=== PATIENT | female | born 1980 | race Caucasian/White ===

== ENCOUNTER → 2018-06-17 | Outpatient (CLI) | END | disposition home or self-care (01) ==

== ENCOUNTER 2019-01-05 13:50 | Inpatient (IN) | payer MEDICAID ==
[~2019-01-05] VITALS: Ht 154.9 cm; Wt 69.3 kg
[~2019-01-05 13:50] MED LIST: EPHEDrine SULFATE 50 MG/5 ML SYG ONE; IBUP-1542 PO; OXYTOCIN 30 UNITS/LR 500 ML BAG IV ONE
[2019-01-05 14:12] VITALS: Ht 154.9 cm; Wt 69.3 kg
[2019-01-05] MEDS ORDERED: LIDOCAINE 1% (MPF) 30 ML INJ INJ PRN (14:30)
[2019-01-05] MEDS ORDERED: CARBOPROST 250 MCG INJ IM PRN ×2 (14:30→23:30)
[2019-01-05] MEDS ORDERED: MISOPROSTOL 200 MCG TAB PR PRN ×2 (14:30→23:30)
[2019-01-05] MEDS ORDERED: METHYLERGONOVINE 0.2 MG INJ IM PRN ×2 (14:30→23:30)
[2019-01-05] MEDS ORDERED: OXYTOCIN 30 UNITS/LR 500 ML IV SCH ×2 (14:30)
[2019-01-05] MEDS ORDERED: OXYTOCIN 30 UNITS/LR 500 ML IV PRN ×2 (14:30→23:30)
[2019-01-05] MEDS: LACTATED RINGER'S 1,000 ML IV SCH ×2 (15:28→16:20)
[2019-01-05] MEDS ORDERED: CEFAZOLIN 2 GM/50 ML (PMX) 50 ML IVPB SCH (15:30)
--- NOTE | 2019-01-05 17:05 | PREAC ---
Date/Time of Note Date/Time of Note DATE: 01/05/19 TIME: 17:04 Anesthesia Eval and Record Evaluation Time Pre-Procedure Interview DATE: 01/05/19 TIME: 17:04 Age 38 Sex female NPO: 8 hrs Preoperative diagnosis Breech Presentation Planned procedure Past Medical History Past Medical History: Includes Heme: Anemia : : (1), Para: (0), Gestational age: (39) Surgery & Anesthesia Issues No known issue Meds Anticoagulation: No Beta Ekaterina within 24 hr: No Reason Beta Ekaterina not given: Pt. not on B-Ekaterina Active Scripts Ibuprofen* (Ibuprofen*) 600 Mg Tab, 600 MG PO Q6, #20 0 Refills Prov:AYLEEN ACUNA MD 07/20/15 Current Medications Lactated Ringer's 1,000 ml @ 125 mls/hr Q8H IV Last administered on 01/05/19at 16:20; Admin Dose 125 MLS/HR; Start 01/05/19 at 14:12 Lidocaine (Xylocaine 1% (Mpf)) 30 ml ONCE PRN INJ .EPISIOTOMY; Start 01/05/19 at 14:30 Oxytocin/Lactated Ringer's 500 ml @ 500 mls/hr ONCE POST IV ; Start 01/05/19 at 14:30 Oxytocin/Lactated Ringer's 500 ml @ 125 mls/hr POST IV ; Start 01/05/19 at 14:30 Oxytocin/Lactated Ringer's 500 ml @ 0 mls/hr ONCE PRN IV .VAGINAL BLEEDING; Start 01/05/19 at 14:30 Methylergonovine Maleate (Methergine) 0.2 mg ONCE PRN IM .VAGINAL BLEEDING; Start 01/05/19 at 14:30 Carboprost Tromethamine (Hemabate) 250 mcg ONCE PRN IM .VAGINAL BLEEDING; Start 01/05/19 at 14:30 Misoprostol (Cytotec) 1,000 mcg ONCE PRN RI .VAGINAL BLEEDING; Start 01/05/19 at 14:30 Cefazolin Sodium/ Dextrose 50 ml @ 100 mls/hr ONCE IVPB ; Start 01/05/19 at 15:30 Meds reviewed: Yes Allergies Coded Allergies: prochlorperazine edisylate (Verified Allergy, Intermediate, Muscle rigidity, 09/17/13) prochlorperazine maleate (Verified Allergy, Intermediate, Muscle rigidity, 09/17/13) Allergies Reviewed: Yes Labs/Studies Labs Reviewed: Reviewed by anesthesiologist Result Diagram: 01/05/19 1450 Laboratory Tests 01/05/19 14:50 Blood Bank Test 01/05/19 14:50 Antibody Screen NEGATIVE Blood Type A POSITIVE Rh Immune Globulin Candidate NO test: Positive Studies: ECG (n/a), CXR (n/a) Pre-procedure Exam Airway: Adequate mouth opening, Adequate thyromental dist Mallampati: Mallampati II Teeth: Normal Lung: Normal Heart: Normal ASA Physical Status ASA physical status: 2 Emergency: None Planned Anesthetic Neuraxial: Spinal Planned Pain Management Sub-arachniod narcotics, Parenteral pain med Pre-operative Attestations Prior to commencing anesthesia and surgery, the patient was re-evaluated, there was verification of: *The patient's identity *The results of appropriate recent lab work and preoperative vital signs *The above evaluation not changing prior to induction *Anesthetic plan, risk benefits, alternative and complications discussed with patient/family; questions answered; patient/family understands, accepts and wishes to proceed. CED VIVAR MD Jan 05, 2019 17:05
--- NOTE | 2019-01-05 17:22 | HP ---
Date/Time of Note Date/Time of Note DATE: 01/05/19 TIME: 17:19 OB - History Hx of Present Free Text/Dictation 38-year-old female 5 para 3 AB 1 at 40 weeks gestation admitted for primary section because of transverse lie Last Menstrual Period: Apr 13, 2018 Estimated Due Date: Jan 06, 2019 : 5 Para: 3 Spontaneous : 1 Care: Good Care Ultrasounds: Normal mid trimester US Obstetrical Complications: Other (AMA) Medical Complications: None Past Family/Social History * Past Medical, Surgical, Family and Obstetric Histories reviewed from chart. Blood Type: A+ Rubella: immune RPR/VDRL: Negative GBS Status: Negative HBsAG: Negative OB Admission Exam Physical Exam HEENT: WNL Heart: Rhythm Normal Lungs: Clear, Equal Abdomen: WNL Extremities: Normal Reflexes: Normal Cervical Dilatation: None Effacement: 0% Station: -3 Membranes: Intact Heart Rate: 140's Accelerations: Accelerations Present Decelerations: No Decelerations Varibility: Marked Contractions on Admission: None Last 72 hours Lab Results CBC & BMP 01/05/19 14:50 OB Assessment/Plan Other Assessment: Term gestation Transverse lie Other plan: Primary section AYLEEN ACUNA MD Jan 05, 2019 17:22
[2019-01-05] MEDS ORDERED: CITRIC ACID/NA CITRATE 30 ML CUP PO ONE (17:30)
[2019-01-05] MEDS ORDERED: ONDANSETRON 4 MG INJ IV ONE (17:30)
[2019-01-05] MEDS ORDERED: PHENYLephrine (100 MCG/ML) 10ML SYG ONE (17:36)
[2019-01-05] MEDS ORDERED: OXYTOCIN 10 UNIT INJ ONE (17:36)
[2019-01-05] MEDS ORDERED: morphine SULFATE/PF (10 MG/10 ML) INJ ONE (17:36)
[2019-01-05] MEDS ORDERED: DEXAMETHASONE 4 MG/ML 1 ML INJ ONE (17:44)
[2019-01-05] MEDS ORDERED: KETOROLAC 30 MG INJ ONE (17:44)
[2019-01-05] MEDS ORDERED: AZITHROMYCIN 500MG/NS (PMX) 250 ML IVPB ONE (18:30)
[2019-01-05] MEDS ORDERED: KETOROLAC 30 MG INJ IV STA (18:30)
--- NOTE | 2019-01-05 18:30 | OPR ---
Operative Report Planned Procedure Procedure date Jan 05, 2019 Procedure(s) Primary section Performed by see signature line Plant General Manager: ERICKA MUNOZ MD Anesthesiologist: CED VIVAR MD Pre-procedure diagnosis Term gestation in breech presentation [id number] Anesthesia Type: [id number] spinal Post-Procedure Post-procedure diagnosis Status post Findings Live Baby with double footling breech presentation Normal-appearing right and left fallopian tubes and ovary Estimated Blood Loss: 500 - 600 mls Specimen(s) none Grafts/Implant(s) none Complication(s) none Pt Condition post procedure: stable Procedure Description Under satisfactory anaesthesia a Pfannenstiel incision was made two fingerbreadth above and parallel to the symphysis of pubis. Incision was extended laterally to the border of the Recti muscles on either sides. Incision was carried down with sharp and blunt dissection until fascia was reached. Anterior Recti muscle fascia was incised in mid portion and incision extended laterally to the border of skin incision. Fascia was mobilized from muscle superiorly and Recti muscles were from midline using sharp and blunt dissection. Peritoneum was visualized; Avoiding bowel and bladder it was incised . Incision was extended superiorly and inferiorly. Bladder blade was placed. Posterior peritoneum covering the lower segment of the uterus and lower segment of the uterus were incised. Incision was extended laterally to the border of Round Lig. on either sides and baby was delivered via total breech extraction without any difficulty. Amniotic fluid appeared clear. Cord blood was obtained and cord had 3 vessels . Placenta was delivered spontaneously and appeared intact and complete. Intrauterine cavity was rubbed with a laparotomy sponge. Uterine incision was closed in 2 layers using running stitches of No1 Monocryl. Hemostasis appeared secure. Ovaries and Fallopian tubes were within normal limits. Announcing needle, lap sponge and instrument count to be correct abdomen was closed in layers as follows: Peritoneum and Recti muscles with running stitches of 2=0 Vicryl. Fascia with running stitch of No 1 PDS. Subcutaneous tissue with running stitches of 2-0 Monocryl and skin was closed using jose. Patient tolerated the procedure well and was transferred to [facility] in good conditi on. AYLEEN ACUNA MD Jan 05, 2019 18:30
--- NOTE | 2019-01-05 18:36 | PAC ---
Date/Time of Note Date/Time of Note DATE: 01/05/19 TIME: 18:36 Post-Anesthesia Notes Post-Anesthesia Note Last documented vital signs T: 98.0 Activity: WNL Respiratory function: WNL Cardiovascular function: WNL Mental status: Baseline Pain reasonably controlled: Yes Hydration appropriate: Yes Nausea/Vomiting absent: Yes CED VIVAR MD Jan 05, 2019 18:36
[2019-01-05] MEDS ORDERED: ACETAMINOPHEN 500 MG TAB PO PRN (19:00)
[2019-01-05] MEDS ORDERED: DIPHENHYDRAMINE 50 MG INJ IV PRN (19:00)
[2019-01-05] MEDS ORDERED: HYDROCODONE/APAP (5/325) TAB PO PRN (19:00)
[2019-01-05] MEDS ORDERED: morphine 2 MG INJ IV PRN ×2 (19:00)
[2019-01-05] MEDS ORDERED: ONDANSETRON 4 MG INJ IV PRN (19:00)
[2019-01-05] MEDS ORDERED: NALBUPHINE HCL (10 MG/1 ML) INJ IV PRN (19:00)
[2019-01-05] MEDS ORDERED: KETOROLAC 30 MG INJ IV PRN (19:00)
[2019-01-05] MEDS ORDERED: NALOXONE (0.4 MG/ML) INJ IV PRN (19:00)
[2019-01-05] MEDS ORDERED: HYDROmorphONE 0.5 MG/0.5 ML SYG IV PRN ×2 (19:00)
[2019-01-05 22:00] VITALS: BP 144/67; PULSE 69; RESP 20
[2019-01-05] MEDS ORDERED: LACTATED RINGER'S 1,000 ML IV SCH (23:28)
[2019-01-05] MEDS ORDERED: NA PHOSPHATE/BIPHOS 133 ML ENEMA PR PRN (23:30)
[2019-01-06] MEDS: CEFAZOLIN 2 GM/50 ML (PMX) 50 ML IVPB SCH ×3 (00:49→15:23)
[2019-01-06] MEDS: CLINDAMYCIN 300 MG CAP PO SCH ×5 (01:26→23:40)
[2019-01-06 02:00] VITALS: BP 127/60; PULSE 77; RESP 18
[2019-01-06 04:00] VITALS: BP 127/68; PULSE 63; RESP 20
[2019-01-06 08:00] VITALS: BP 123/65; PULSE 65; RESP 16
[2019-01-06] MEDS: SENNA/DOCUSATE NA (8.6MG/50MG) TAB PO SCH ×2 (09:38→21:34)
[2019-01-06] MEDS ORDERED: BISACODYL 10 MG SUPP PR ONE (10:30)
[2019-01-06 11:55] VITALS: BP 136/72; PULSE 68; RESP 20
[2019-01-06 16:10] VITALS: BP 125/67; PULSE 78; RESP 18
--- NOTE | 2019-01-06 16:26 | PN ---
Date/Time of Note Date/Time of Note DATE: 01/06/19 TIME: 16:25 Assessment/Plan VTE Prophylaxis VTE Prophylaxis Intervention: ambulation Lines/Catheters IV Catheter Type (from Nrsg): Peripheral IV Assessment/Plan Assessment/Plan Postop day #1 status post Advance diet and ambulate Continue to monitor vital signs Subjective 24 Hr Interval Summary No bowel movement but passing flatus Constitutional: no complaints, improved, ambulates, BM, flatus, urine output Pain Control: well controlled Exam/Review of Systems Vital Signs Vitals Vital Signs Date Temp Pulse Resp B/P (MAP) Pulse Ox O2 O2 Flow FiO2 Time Delivery Rate 01/06/19 98.3 68 20 136/72 97 Room Air 11:55 (93) Intake and Output 01/05/19 01/05/19 01/06/19 1515:00 23:00 07:00 IntakeIntake Total 1375 ml 775 ml OutputOutput Total 1504 ml 300 ml BalanceBalance -129 ml 475 ml Exam Free Text/Dictation Abdomen is soft slightly tender in the lower segment Abdomen does not seem distended and bowel sounds are present Incision is covered Constitutional: alert, oriented, well developed Psych: no complaints, nl mood/affect Head: normocephalic, atraumatic Eyes: nl conjunctiva, EOMI, nl lids, nl sclera ENMT: nl external ears & nose, nl lips & teeth, nl nasal mucosa & septum, mucosa pink and moist Neck: supple, non-tender Respiratory: clear to auscultation, normal air movement Cardiovascular: regular rate and rhythm, nl pulses Gastrointestinal: soft, nl liver, spleen, non-tender Musculoskeletal: nl extremities to inspection, nl gait and stance Extremities: normal pulses Neurological: STAVE HEWER II-XII intact, nl mental status, nl speech, nl strength Skin: nl turgor, rash or lesions Lymph: nl lymph nodes Results Result Diagram: 01/06/19 0702 AYLEEN ACUNA MD Jan 06, 2019 16:26
[2019-01-06] MEDS ORDERED: HYDROCODONE/APAP (5/325) TAB PO PRN (17:25)
[2019-01-06 19:45] VITALS: BP 118/67; PULSE 75; RESP 18
[2019-01-06] MEDS: IBUPROFEN 800 MG TAB PO SCH (21:33)
[2019-01-06] MEDS: LANOLIN HPA 1 PKT TOP PRN (23:40)
[2019-01-07] MEDS: OXYCODONE/ACETAMINOPHEN (5/325) TAB PO PRN ×2 (03:34→08:48)
[2019-01-07 03:45] VITALS: BP 119/72; PULSE 74; RESP 18
[2019-01-07] MEDS: IBUPROFEN 800 MG TAB PO SCH ×3 (05:44→21:42)
[2019-01-07] MEDS: CLINDAMYCIN 300 MG CAP PO SCH ×4 (05:44→23:43)
[2019-01-07 07:30] VITALS: BP 129/70; PULSE 68; RESP 17
[2019-01-07] MEDS: SENNA/DOCUSATE NA (8.6MG/50MG) TAB PO SCH ×2 (08:48→21:41)
--- NOTE | 2019-01-07 13:46 | DS ---
Date/Time of Note Date/Time of Note Home today or next day DATE: 01/07/19 TIME: 13:45 Obstetrical Discharge Record Final Diagnosis Final Diagnosis: Term delivered Other Final Diagnosis Status post Section Section: Primary Primary Indication Breech presentation Condition on Discharge Physical Assessment Last Vitals: See nurse's notes Voiding: Yes Bowel Movement: Yes Breast: Soft, non-tender, Filling Fundus: Firm Abdomen and Incision: Abdomen is soft with present bowel sounds Incision is healing well without induration and or erythema Episiotomy: Not applicable Calf Tenderness: No Patient Condition: Good AYLEEN ACUNA MD Jan 07, 2019 13:46
--- NOTE | 2019-01-07 13:48 | DS ---
Date/Time of Note Date/Time of Note DATE: 01/07/19 TIME: 13:46 Discharge Summary Admission/Discharge Info Admit Date/Time Jan 05, 2019 at 13:50 Discharge Date/Time January 072018 Discharge Diagnosis Status post delivery Patient Condition: Good Procedures Primary section Hx of Present Illness 38-year-old female admitted for section because of abnormal presentation Had uncomplicated section with breech presentation Had uneventful postop course Hospital Course Uncomplicated Discharge home on his third day with good prognosis and condition Home Meds Active Scripts Ibuprofen* (Ibuprofen*) 600 Mg Tab, 600 MG PO Q6, #20 0 Refills Prov:AYLEEN ACUNA MD 07/20/15 Follow-up Plan To 3 days in clinic for staple removal Primary Care Provider Care Physician No Primary Time spent on discharge: > 30 minutes Pending Labs Laboratory Tests Test 01/07/19 08:57 White Blood Count 9.7 10^3/ul (4.8-10.8) Red Blood Count 3.54 10^6/ul (4.20-5.40) Hemoglobin 10.4 g/dl (12.0-16.0) Hematocrit 30.8 % (37.0-47.0) Mean Corpuscular Volume 87.0 fl (82.0-101.0) Mean Corpuscular Hemoglobin 29.4 pg (29.0-33.0) Mean Corpuscular Hemoglobin Concent 33.8 g/dl (32.0-37.0) Red Cell Distribution Width 13.4 % (11.5-14.5) Platelet Count 215 10^3/UL (140-415) Mean Platelet Volume 9.5 fl (7.4-10.4) Immature Granulocytes % 0.700 % (0.001-0.429) Neutrophils % 83.2 % (39.0-77.0) Lymphocytes % 11.2 % (15.0-51.0) Monocytes % 4.7 % (0.0-11.0) Eosinophils % 0.1 % (0.0-7.0) Basophils % 0.1 % (0.0-2.0) Nucleated Red Blood Cells % 0.0 /100WBC (0.0-0.0) Immature Granulocytes # 0.070 10^3/ul (0.0-0.031) Neutrophils # 8.1 10^3/ul (1.6-7.5) Lymphocytes # 1.1 10^3/ul (0.8-2.9) Monocytes # 0.5 10^3/ul (0.3-0.9) Eosinophils # 0.0 10^3/ul (0.0-0.5) Basophils # 0.0 10^3/ul (0.0-0.1) Nucleated Red Blood Cells # 0.0 10^3/ul (0.0-0.0) AYLEEN ACUNA MD Jan 07, 2019 13:48
--- NOTE | 2019-01-07 13:50 | PD.PPDC ---
PLANETARIUM TECHNICIAN Discharge Instruction Provider Information Physician Information 38-year-old female had primary section Diagnosis [id number] Final Diagnosis: Uzxxt4a Status post Condition Mvpry0Bl Patient Condition: Aepws3e Good Diet Ghjpp2Ne Diet: Iryvm3s Resume Regular Diet Activity/Restrictions Ontce5Jz Activity: Ghqkh6v May Shower Qzywd2Ye Restrictions: Gcukg7j No Exercising No Lifting Nothing in the Vagina Pduao4Fx Return to Work or School: Usmsl1v March 13, 2019 Wound/Drain Care Instructions [id number] Wound/Drain Care Instructions: Vusic5e Keep clean and dry Follow-up Follow-up with Physician: 2, 3, Day/Days (In clinic for staple removal) Return to clinic for 2 [id number] DIRECTOR SUPPLY Instructions: Jekqn2s Fever greater than 101 Chills Skdmh1Kb OB Instructions: Iheth3v Breast Tenderness Depression Comment: Pelvic rest no hard activity for 2 months [id number] Surgical Instructions: Tjvwr2b Incisional Drainage Incisional Redness AYLEEN ACUNA MD Jan 07, 2019 13:50
[2019-01-07] MEDS ORDERED: ACET325T33 PO ×2 (13:53→15:34)
[2019-01-07] MEDS ORDERED: IBUP800T48 PO (13:53)
[2019-01-07] MEDS ORDERED: ACETAMINOPHEN 325 MG TAB PO SCH ×2 (14:00→16:00)
[2019-01-07] MEDS: CIPROFLOXACIN 500 MG TAB PO SCH ×2 (15:12→18:13)
[2019-01-07 16:10] VITALS: BP 119/76; PULSE 72; RESP 18
[2019-01-07 21:00] VITALS: BP 113/73; PULSE 77; RESP 18
[2019-01-08 04:10] VITALS: BP 129/64; PULSE 63; RESP 18
[2019-01-08] MEDS: CLINDAMYCIN 300 MG CAP PO SCH ×2 (05:44→11:52)
[2019-01-08] MEDS: CIPROFLOXACIN 500 MG TAB PO SCH (05:44)
[2019-01-08] MEDS: IBUPROFEN 800 MG TAB PO SCH (05:44)
[2019-01-08] MEDS: LANOLIN HPA 1 PKT TOP PRN (06:26)
[2019-01-08 08:10] VITALS: BP 114/72; PULSE 64; RESP 18
[2019-01-08] MEDS: SENNA/DOCUSATE NA (8.6MG/50MG) TAB PO SCH (09:00)
[2019-01-08] MEDS ORDERED: DIPHTH/TET/ACEL PERTUSS (ADULT) 0.5 ML VIAL IM* ONE (09:00)
[2019-01-08] MEDS ORDERED: MEASLES,MUMPS,RUBELLA VACCINE INJ SC* ONE (09:00)
--- NOTE | 2019-01-09 14:42 | DELSUM ---
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 Babies in Womb: 1 Attempted: No Labor Anesthesia: Intrathecal LABOR INFORMATION Reason for Induction: Not Applicable Oxytocin: N/A Group B Beta Strep: Negative Antibiotics # of Doses: 1 Antibiotics Time of Last Dose: 01/05/2019 15:34 Steroids Given: None Reason Steroids Not Administered: Not Applicable MEMBRANES Membranes Rupture Method: Artificial Rupture of Membranes: 01/05/2019 17:56 Length of Rupture (hr): 0.02 Amniotic Fluid Color: Clear Amniotic Fluid Amount: Moderate Amniotic Fluid Odor: None STAGES OF LABOR Stage 3 hr: 0 Stage 3 min: 1 CSECTION DELIVERY Primary Indication: Breech Presentation Secondary Indication: Breech Presentation CSection Urgency: Elective CSection Incidence: Primary Labor: Labor Elective: Elective CSection Incision: Lower Uterine Transverse BABY A INFORMATION Infant Delivery Date/Time: 01/05/2019 17:57 Method of Delivery: Born in Route : No : N/A Forceps: N/A Vacuum Extraction: N/A Shoulder Dystocia : No SHOULDER DYSTOCIA BABY A Delivery Date/Time: 01/05/2019 17:57 PRESENTATION/POSITION BABY A Presentation: Breech Cephalic Presentation: N/A Breech Presentation: Double Footling PLACENTA INFORMATION BABY A Placenta Delivery Time : 01/05/2019 17:58 Placenta Method of Delivery: Manual Removal Placenta Status: Delivered SCORES BABY A Heart Rate 1 min: >100 bpm Resp Effort 1 min: Good Cry Reflex Irritability 1 min: Cough/Sneeze/Pulls Away Muscle Tone 1 min: Active Motion Color 1 min: Body [place], Extremit Blue Resuscitation Effort 1 min: Tactile Stimulation SCORE 1 MIN: 9 Heart Rate 5 min: >100 bpm Resp Effort 5 min: Good Cry Reflex Irritability 5 min: Cough/Sneeze/Pulls Away Muscle Tone 5 min: Active Motion Color 5 min: Body [place], Extremit Blue Resuscitation Effort 5 min: Tactile Stimulation SCORE 5 MIN: 9 INFANT INFORMATION BABY A Gestational Age at Delivery: 39.6 Gestational Status: Full Term- 39- 40.6 Weeks Infant Outcome : Liveborn Infant Condition : Stable Infant Sex: Male IDENTIFICATION/MEDS BABY A ID Band Number: [id number] ID Band Location: Right Leg; Left Arm Sensor Applied: Yes Sensor Number: [id number] Sensor Location : Cord Clamp Vitamin K Given : Not Given Erythromycin Given: Not Given WEIGHT/LENGTH BABY A Birthweight (gm): 3085 Weight (lb): 6 Weight (oz): 13 Length (in): 20.00 Length (cm): 50.80 CORD INFORMATION BABY A No. Cord Vessels: 3 Nuchal Cord : N/A Cord Blood Taken: Yes Suction: Mouth; Nose ASSESSMENT BABY A Infant Complications: Multiple Late Decels Physical Findings at Delivery: Within Normal Limits Respirations: Appears Normal Infant Care By: Britany RIDDLE RN Transferred To: Remains with Mother
== END 2019-01-08 14:05 | disposition home or self-care (01) | DRG 788 ==
LOC: L-D 13:50 → PP1 22:02
PROVIDERS: ADMIT Obstetrics & Gynecology; ATTEND Obstetrics & Gynecology
PROC: 3E033VJ Introduction of Other Hormone into Peripheral Vein, Percutaneous Approach (ICD-10-PCS; 2019-01-05)
PROC: 10D00Z1 Extraction of Products of Conception, Low, Open Approach (ICD-10-PCS; principal; 2019-01-05 15:30)
DX: O48.0 Post-term pregnancy (principal); Z3A.40 40 weeks gestation of pregnancy; O32.1XX0 Maternal care for breech presentation, not applicable or unspecified; Z37.0 Single live birth
CPT/HCPCS: 76815; 85025; 85610; 85730; 86592; 86850; 86900; 86901; 87340; 99464; J0690; J1100; J1885; J2274; J2370; J2405; J2590; J7120